=== PATIENT | male | born 1970 ===

== ENCOUNTER 2023-01-14 23:41 | Emergency (ER) | payer OTHER ==
[~2023-01-14] VITALS: Ht 185.4 cm; Wt 108.9 kg
[2023-01-15] MEDS ORDERED: DICLOFENAC POTA50 MG PO (10:35)
== END 2023-01-15 10:37 ==
LOC: ER 23:41
DX: N39.0 Urinary tract infection, site not specified (principal); K76.0 Fatty (change of) liver, not elsewhere classified; Z91.013 Allergy to seafood